=== PATIENT | male | born 1945 | race Caucasian/White ===

== ENCOUNTER → 2022-07-27 13:42 | Outpatient (BNVA) | payer MEDICARE, SELFPAY | PROVIDERS: PCP Internal Medicine; Visit Provider Physician Assistant | DX: R26.81 Unsteadiness on feet (principal) | CPT/HCPCS: 99202 ==

== ENCOUNTER 2023-01-19 07:51 | Outpatient (AMB) | payer MEDICARE, SELFPAY ==
--- NOTE | 2023-01-19 07:56 | A.OFFVIS_ITS ---
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-confirmed Intake Note: NPV for unsteadiness, also has a lot of back pain Film Casting Operator Required: No Allergies latex [Latex] Allergy (Mild, Verified 01/19/23 08:00) RASH atorvastatin [From LIPITOR] Allergy (Unknown, Verified 01/19/23 08:00) BODY ACHES Latex Gloves Allergy (Unknown, Uncoded 01/19/23 08:00) Rash Medication List - Last Reconciled 01/19/23 by Poly Renee MD albuterol sulfate 90 mcg/actuation 1 inh inhalation Q4-6H PRN ascorbate calcium (vitamin C) 1,000 mg PO DAILY aspirin (Adult Low Dose Aspirin) 81 mg PO DAILY berberine-herbal comb no.18 1,000 caps PO DAILY carvedilol 3.125 mg PO BID coenzyme Q10 (Ultra CoQ10) 300 mg PO DAILY coQ10 (ubiquinol) 100 mg PO DAILY cranberry 15,000 mg PO DAILY folic acid 0.8 mg PO DAILY garlic extract 1,000 mg PO DAILY lorazepam 0.5 mg PO BEDTIME PRN multivitamin 1 tab PO DAILY nitroglycerin 0.4 mg sublingual Q5M PRN omega-3 fatty acids 1,000 mg PO DAILY vitamin B complex 1 cap PO DAILY vitamin K2 45 mcg PO QDAY zinc acetate (Galzin) 50 mg PO DAILY HPI HPI Comments History of Present Illness Details 77y/o male with 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 After his surgery in 2014 he did good and walking was normal. In 2016 he started having back pain and went to see DR. DON and was referred to pain management for facet joint injections. The first injection in 2018 he did well for 1 year. The second injection was in 2019 and he did not have a good response. Since then his back pain has been worsening. About 1 year ago he started noticing having trouble standing and walking. He has tremors in his legs and had trouble walking . he was seen by Neuro spine ( Mykel Canas ) at [place]. CT of LS spine and C spine did not show any spinal stenosis but had multilevel deg changes. No recent falls.His thinks it is related to amlodipine as she watched a video on you tube.So he stopped amlodipine and he feels his tremors have improved but still has trouble walking. 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 disorder Cervical spondylosis Lumbar spondylosis Borderline hyperlipidemia Prostate cancer Prediabetes Chronic back pain CAD (coronary artery disease) HTN (hypertension) Cataract (lens) fragments in eye following cataract surgery, bilateral Surgical History Hx of appendectomy Hx of tonsillectomy History of cholecystectomy Stented coronary artery Social History Alcohol intake: never Patient Tobacco Use Status: Never used Tobacco Review of Systems Const Reports weakness ENT Reports neck pain Card Reports dyspnea Resp Reports dyspnea Musc Reports back pain and Reports neck pain Neuro Reports tremor(s) and Reports weakness Physical Exam Vital Signs: Last Vital Signs Pulse 78 01/19/23 08:14 BP 110/78 01/19/23 08:14 Pulse Ox 98 01/19/23 08:14 Oxygen Delivery Method Room Air 01/19/23 08:14 BMI result Body Mass Index 31.3 Const General: cooperative, healthy appearing, comfortable and no acute distress Nutritional Appearance: average body habitus Orientation/consciousness: patient oriented x3 Neuro Other: Gait- can walk without a cane or walker but slower and mildly off balance with wide base with walker, good stride and balance No tremors No cog wheel rigidity General: patient oriented x3, tone normal, moves all extremities and no focal motor deficits Cranial nerves: Yes Bilaterally intact EOM present, Yes Nystagmus not present, Yes Normal facial strength present, Yes Midline tongue present, Yes Symmetric palate elevation present and Yes Ability to bilaterally elevate shoulders present Cognition (Neuro): normal cognition Motor exam (neuro): 5/5 motor strength present throughout and Normal motor muscle tone present throughout Deep tendon reflexes (DTR's): Right triceps reflex intensity grade: 2+, Left triceps reflex intensity grade: 2+, Rt Biceps (C5, C6): 2+, Left biceps reflex intensity grade: 2+, Right brachioradialis reflex intensity grade: 2+, Left brachioradialis reflex intensity grade: 2+, Right patellar reflex intensity grade: 2+ and Left patellar reflex intensity grade: 2+ Coordination: [id number] test normal Assessment & Plan Assessment & Plan (1) Gait disorder: Comment: multifactorial, related to back pain, lumbar and cervical spondylosis Code(s): R26.9 - Unspecified abnormalities of gait and mobility (2) Cervical spondylosis: Code(s): M47.812 - Spondylosis without myelopathy or radiculopathy, cervical region (3) Lumbar spondylosis: Code(s): M47.816 - Spondylosis without myelopathy or radiculopathy, lumbar region Plan I will evaluate him with CT brain to r/o NPH which is unlikely Labs to r/o Vit b 12 deficiency Suggested PT for gait training . F/u with pain management Tremors resolved with stopping amlodipine as per his . Orders: Orders PT Evaluation and Treatment 01/19/23 R26.9 - Unspecified abnormalities of gait and mobility CT head/brain wo IV con 01/19/23 R26.9 - Unspecified abnormalities of gait and mobility Vitamin B12 and Folate 01/19/23 R26.9 - Unspecified abnormalities of gait and mobility Complete Blood Count Auto Diff 01/19/23 R26. - Unspecified abnormalities of gait and mobility Comprehensive Met. Panel 01/19/23 R26.9 - Unspecified abnormalities of gait and mobility Erythrocyte Sedimentation Rate 01/19/23 R26.9 - Unspecified abnormalities of gait and mobility Vitamin D 25-OH (D2 and D3) 01/19/23 R26.9 - Unspecified abnormalities of gait and mobility Lipid Panel with Reflex 01/19/23 R26.9 - Unspecified abnormalities of gait and mobility Coding Level of Care Code New Pt Level 4 (71368) Diagnoses Gait disorder R26.9 Cervical spondylosis M47.812 Lumbar spondylosis M47.816
[2023-01-19 08:14] VITALS: BP 110/78; PULSE 78; O2SAT 98; BMI 31.3
== END 2023-01-19 08:48 | disposition home or self-care (01) ==
PROVIDERS: Visit Provider Psychiatry & Neurology Neurology
DX: R26.9 Unspecified abnormalities of gait and mobility (principal); M47.812 Spondylosis without myelopathy or radiculopathy, cervical region; M47.816 Spondylosis without myelopathy or radiculopathy, lumbar region
CPT/HCPCS: 99204

== ENCOUNTER → 2023-01-19 07:51 | Outpatient (BNVA) | payer MEDICARE, SELFPAY | PROVIDERS: Visit Provider Psychiatry & Neurology Neurology ==

== ENCOUNTER 2023-02-02 07:31 | Outpatient (REF) | payer MEDICARE, SELFPAY ==
--- NOTE | ~2023-02-02 | CT_ITS ---
EXAMINATION: CT HEAD WITHOUT CONTRAST CLINICAL INFORMATION: Abnormalities of gait and mobility. COMPARISON: There are no prior studies available for comparison. TECHNIQUE: Multidetector CT imaging of the head was obtained without the use of intravenous contrast. Coronal and sagittal reformatted images were generated at the technologist workstation. This CT examination was performed using dose optimization techniques as appropriate, variously including the following: *Automated exposure control *Adjustment of mA and/or kV according to patient size (this includes techniques or standardized protocols for targeted exams where dose is matched to indication/reason for exam; i.e. extremities or head) *Use of iterative reconstruction technique DLP: 793 mGy-cm. FINDINGS: There is no evidence of acute intracranial hemorrhage or territorial infarction. No abnormal mass-effect or midline shift is seen. Major to white matter differentiation is well preserved. No extra-axial fluid collections are identified. The ventricles and sulci commensurately prominent consistent with diffuse volume loss. There are areas of low-attenuation in the periventricular and subcortical white matter consistent with chronic microvascular ischemic changes. There are bilateral basal ganglia lacunar infarcts. There are no acute osseous or soft tissue abnormalities. There have been bilateral lens extractions. There are atheromatous calcifications of the bilateral vertebral and cavernous internal carotid arteries. The mastoid air cells and visualized paranasal sinuses are well aerated. CT/CT head/brain wo IV con IMPRESSION: 1. There are no acute bleeds or territorial infarcts. No masses are demonstrated. 2. There are chronic microvascular ischemic changes and lacunar infarcts. There is diffuse volume loss.
== END 2023-02-02 07:32 | disposition home or self-care (01) ==
LOC: HO.CT 07:31
PROVIDERS: PCP Nurse Practitioner Adult Health; Visit Provider Psychiatry & Neurology Neurology
DX: R26.9 Unspecified abnormalities of gait and mobility (principal)
CPT/HCPCS: 70450

== ENCOUNTER 2023-11-30 09:42 | Outpatient (AMB) | payer MEDICARE, SELFPAY ==
--- NOTE | 2023-11-30 10:03 | A.OFFVIS_ITS ---
Vital Signs 11/30/23 10:04 Height 5 ft 6 in Weight 191 lb BMI 30.8 BP 128/76 Blood Pressure Location Rt brachial Position Sitting Respiration 16 Pulse 60 Pulse Source Pulse Oximeter Pulse Oximetry (%) 96 Oxygen Delivery Method Room Air Intake Visit Reasons: 6m f/u Unsteadiness Intake Note: Pt presents to te office for 6 month follow up for unsteadiness. Social And Human Services Assistant Required: No Allergies latex [Latex] Allergy (Mild, Verified 11/30/23 10:04) RASH atorvastatin [From LIPITOR] Allergy (Unknown, Verified 11/30/23 10:04) BODY ACHES Latex Gloves Allergy (Unknown, Uncoded 11/30/23 10:04) Rash Medication List - Last Reconciled 11/30/23 by Poly Renee MD albuterol sulfate 90 mcg/actuation 1 inh inhalation Q4-6H PRN ascorbate calcium (vitamin C) 1,000 mg PO DAILY aspirin (Adult Low Dose Aspirin) 81 mg PO DAILY berberine-herbal comb no.18 1,000 caps PO DAILY carvedilol 3.125 mg PO BID coenzyme Q10 (Ultra CoQ10) 300 mg PO DAILY coQ10 (ubiquinol) 100 mg PO DAILY cranberry 15,000 mg PO DAILY folic acid 0.8 mg PO DAILY garlic extract 1,000 mg PO DAILY lorazepam 0.5 mg PO BEDTIME PRN multivitamin 1 tab PO DAILY nitroglycerin 0.4 mg sublingual Q5M PRN omega-3 fatty acids 1,000 mg PO DAILY vitamin B complex 1 cap PO DAILY vitamin K2 45 mcg PO QDAY zinc acetate (Galzin) 50 mg PO DAILY HPI Comments Details: 78y/o male with DJD of lumbar and cervical spine , with surgery L2-5 decompression in 2014 comes for follow up of gait abnormality.CT head - no evidence of NPH , white matter changes and atrophy. After his surgery in 2014 he did good and walking was normal. In 2016 he started having back pain and went to see DR. DON and was referred to pain management for facet joint injections. The first injection in 2018 he did well for 1 year. The second injection was in 2019 and he did not have a good response. Since then his back pain has been worsening. About 1 year ago he started noticing having trouble standing and walking. He has tremors in his legs and had trouble walking . he was seen by Neuro spine ( Mykel Canas ) at [place]. CT of LS spine and C spine did not show any spinal stenosis but had multilevel deg changes. No recent falls.His thinks it is related to amlodipine as she watched a video on you tube.So he stopped amlodipine and he feels his tremors have improved but still has trouble walking. 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 disorder Cervical spondylosis Lumbar spondylosis Borderline hyperlipidemia Prostate cancer Prediabetes Chronic back pain CAD (coronary artery disease) HTN (hypertension) Cataract (lens) fragments in eye following cataract surgery, bilateral Surgical History Hx of appendectomy Hx of tonsillectomy History of cholecystectomy Stented coronary artery Social History Alcohol intake: never Patient Tobacco Use Status: Never used Tobacco Physical Exam Vital Signs: Last Vital Signs Pulse 60 11/30/23 10:04 Resp 16 11/30/23 10:04 BP 128/76 11/30/23 10:04 Pulse Ox 96 11/30/23 10:04 Oxygen Delivery Method Room Air 11/30/23 10:04 BMI result Body Mass Index 30.8 Const General: cooperative, healthy appearing, comfortable and no acute distress Nutritional Appearance: average body habitus Orientation/consciousness: patient oriented x3 Neuro Other: Gait- can walk without a cane or walker but slower and mildly off balance with wide base with walker, good stride and balance No tremors No cog wheel rigidity General: patient oriented x3, tone normal, moves all extremities and no focal motor deficits Cranial nerves: Yes Bilaterally intact EOM present, Yes Nystagmus not present, Yes Normal facial strength present, Yes Midline tongue present, Yes Symmetric palate elevation present and Yes Ability to bilaterally elevate shoulders present Cognition (Neuro): normal cognition Motor exam (neuro): 5/5 motor strength present throughout and Normal motor muscle tone present throughout Deep tendon reflexes (DTR's): Right triceps reflex intensity grade: 2+, Left triceps reflex intensity grade: 2+, Rt Biceps (C5, C6): 2+, Left biceps reflex i ntensity grade: 2+, Right brachioradialis reflex intensity grade: 2+, Left brachioradialis reflex intensity grade: 2+, Right patellar reflex intensity grade: 2+ and Left patellar reflex intensity grade: 2+ Coordination: [id number] test normal Assessment & Plan Assessment & Plan (1) Gait disorder: Comment: multifactorial, related to back pain, lumbar and cervical spondylosis Code(s): R26.9 - Unspecified abnormalities of gait and mobility Category: Medical (2) Cervical spondylosis: Code(s): M47.812 - Spondylosis without myelopathy or radiculopathy, cervical region Category: Medical (3) Lumbar spondylosis: Code(s): M47.816 - Spondylosis without myelopathy or radiculopathy, lumbar region Category: Medical Plan No evidence of NPH on CT Labs to r/o Vit b 12 deficiency Home PT for gait training F/u with pain management F/U as needed Orders: Orders Complete Blood Count Auto Diff Today R26.9 - Unspecified abnormalities of gait and mobility Comprehensive Met. Panel Today R26.9 - Unspecified abnormalities of gait and mobility Referrals [facility] Referral M47.812 - Spondylosis without myelopathy or radiculopathy, cervical region, M47.816 - Spondylosis without myelopathy or radiculopathy, lumbar region, R26.9 - Unspecified abnormalities of gait and mobility Coding Level of Care Code Est Pt Level 4 (25201) Diagnoses Gait disorder R26.9 Cervical spondylosis M47.812 Lumbar spondylosis M47.816
[2023-11-30 10:04] VITALS: BP 128/76; PULSE 60; RESP 16; O2SAT 96; BMI 30.8
== END 2023-11-30 10:44 | disposition home or self-care (01) ==
PROVIDERS: Absent Provider Psychiatry & Neurology Neurology; PCP Internal Medicine; Visit Provider Psychiatry & Neurology Neurology
DX: R26.9 Unspecified abnormalities of gait and mobility (principal); M47.812 Spondylosis without myelopathy or radiculopathy, cervical region; M47.816 Spondylosis without myelopathy or radiculopathy, lumbar region
CPT/HCPCS: 99214

== ENCOUNTER → 2023-11-30 09:42 | Outpatient (BNVA) | payer MEDICARE, SELFPAY | PROVIDERS: Absent Provider Psychiatry & Neurology Neurology; PCP Internal Medicine; Visit Provider Psychiatry & Neurology Neurology | DX: R26.9 Unspecified abnormalities of gait and mobility (principal); M47.812 Spondylosis without myelopathy or radiculopathy, cervical region; M47.816 Spondylosis without myelopathy or radiculopathy, lumbar region | CPT/HCPCS: 36415; 80053; 82306; 82607; 82746; 85025; 99212 ==

== ENCOUNTER 2023-11-30 10:45 | Outpatient (REF) | payer MEDICARE, SELFPAY ==
[2023-11-30 17:54] LABS: MANUAL DIFF FLAG NO
[2023-11-30 18:18] LABS: Basophils Percent Auto 0.7 % (0-2); Eosinophils Absolute Auto 0.4 X10*3/uL (0.0-0.4); Eosinophils Percent Auto 6.4 % (0-4); Hematocrit 44.7 % (42.0-52.0); Hemoglobin 15.3 g/dl (14.0-18.0); Imm Gran Abs Auto 0.01 X10*3/uL (0.00-0.03); Imm Gran Pct Auto 0.2 % (0.0-0.4); Lymphocytes Absolute Auto 1.3 X10*3/uL (1.2-4.9); Lymphocytes Percent Auto 21.5 % (20-40); Mean Corpuscular HGB Conc 34.2 g/dl (31.0-36.0); Mean Corpuscular Volume 93.5 fL (80.0-98.0); Mean Platelet Volume 10.8 fL (9.4-12.4); Monocytes Absolute Auto 0.6 X10*3/uL (0.1-1.2); Monocytes Percent Auto 9.9 % (2-11); Neutrophils Absolute Auto 3.7 x10*3/uL (2.0-8.3); Neutrophils Percent Auto 61.3 % (45-73); Platelet Count 248 X10*3/uL (160-400); Red Blood Count 4.78 X10*6/uL (4.60-5.80); Red Cell Distribution Width 13.3 % (11.0-16.0)
[2023-11-30 18:19] LABS: Alanine Aminotransferase 19 U/L (0-40); Alkaline Phosphatase 83 U/L (39-117); Anion Gap 11 (12-20); Aspartate Amino Transferase 18 U/L (5-37); Bilirubin Total 0.5 mg/dL (0.0-1.0); Blood Urea Nitrogen 15 mg/dL (9-16); Calcium 9.6 mg/dL (8.4-10.2); Carbon Dioxide 29 mmol/L (22-29); Chloride 106 mmol/L (96-108); Estimated Glomerular Filt Rate > 60; Glucose Random 90 mg/dL (60-115); Potassium 4.5 mmol/L (3.3-5.1); Sodium 141 mmol/L (135-145); Total Protein 6.8 g/dL (6.5-8.0)
[2023-11-30 18:55] LABS: Folate 15.2 ng/mL (> or = 4.0); Vitamin B12 316 pg/mL (200-900)
[2023-12-06 16:39] LABS: Vitamin D 25-OH, D2 <4 ng/mL; Vitamin D 25-OH, D3 34 ng/mL; Vitamin D 25-OH, Total 34 ng/mL (30-100)
== END 2023-11-30 10:46 | disposition home or self-care (01) ==
LOC: HO.HKASLDS 10:45
PROVIDERS: Visit Provider Psychiatry & Neurology Neurology
DX: R26.9 Unspecified abnormalities of gait and mobility (principal); Z13.89 Encounter for screening for other disorder
CPT/HCPCS: 36415; 80053; 82306; 82607; 82746; 85025

== ENCOUNTER 2025-03-04 07:49 | Outpatient (REF) | payer MEDICARE, SELFPAY ==
--- NOTE | ~2025-03-04 | XR_ITS ---
EXAMINATION: XR CHEST CLINICAL INFORMATION: R05.9 - Cough, unspecified COMPARISON: X-ray 03/06/2019 TECHNIQUE: 2 views of the chest were obtained. FINDINGS: Cardiomediastinal silhouette is within normal limits, stable. Stable mild elevation right hemidiaphragm. Mild peribronchial thickening in bilateral lower lungs. No focal consolidation. No effusion. No pneumothorax. Thoracolumbar spondylosis. XR/XR chest 2V IMPRESSION: Bronchial wall thickening can be seen with a small airway process such as asthma or atypical/viral infections. Electronically signed by: Margarito Osuna MD 03/04/2025 08:55 AM EST
== END 2025-03-04 07:50 | disposition home or self-care (01) ==
LOC: HO.HMGCX 07:49
PROVIDERS: PCP Internal Medicine; Visit Provider Nurse Practitioner Family
DX: R06.2 Wheezing (principal); R05.9 Cough, unspecified; Z79.82 Long term (current) use of aspirin; Z79.899 Other long term (current) drug therapy
CPT/HCPCS: 71046; 99212

== ENCOUNTER 2025-03-04 07:49 | Outpatient (AMB) | payer MEDICARE, SELFPAY ==
--- OUTSIDE RECORDS SUMMARY | 2025-03-04 07:51 | XMS_ITS | Encounter Summary ---
Author Organization [employer] Address [address] [facility] [address] [place] [address] Care Team Providers Care Rn Maternity Name Role Phone Unavailable Primary Care Provider Unavailabl e Encounter Details Date Type Department Care Team (Latest Contact Info) Description 07/24/2020 Abstract [facility] CONVERSIONS Dental, Provider, DDS Social History Tobacco Use Types Packs/Day Years Used Date Smoking Tobacco: Never Assessed Sex and Gender Information Value Date Recorded Sex Assigned at Male 02/01/2022 10:35 AM EDT Legal Sex Male 10:35 AM EDT Gender Identity Male 02/01/2022 10:35 AM EDT Sexual Orientation Straight 02/01/2022 10 :35 AM EDT documented as of this encounter Plan of Treatment Not on file documented as of this encounter Visit Diagnoses Not on filedocumented in this encounter
--- OUTSIDE RECORDS SUMMARY | 2025-03-04 07:51 | XMS_ITS | Encounter Summary ---
Author Organization [employer] Address [address] [facility] [address] [place] [address] Care Team Providers Care Talent Agent Name Role Phone Unavailable Primary Care Provider Unavailabl e Encounter Details Date Type Department Care Team (Latest Contact Info) Description 06/28/2018 Abstract [facility] CONVERSIONS Dental, Provider, DDS Social History [...]
--- OUTSIDE RECORDS SUMMARY | 2025-03-04 07:51 | XMS_ITS | Patient Health Record ---
Author Organization [facility] Address [address] [place] [address] Care Team Providers Care Corporate Banking Officer Name Role Phone Hernando EMERSON, Carol Primary Care Provider Unavailab Serjio Michaels Unavailable [phone] Allergies Allergen (clinical drug ingredient) Drug/Non Drug Allergy documented on EMR Reaction Allergy Type Onset Date Status atorvastatin Lipitor achey muscles,joints Drug Allergy Active Adhesive hives Allergy Active Latex Latex rash Allergy Active Reason For Referral No Information Medications Medication SIG (Take, Route, Frequency, Duration) Notes Start Date End Date Status Pantothenic Acid Act kareem Niacin Active amLODIPine Besylate 5 MG Orally Active Folic Acid Active Vitamin B12 Not-Taki ng Choline 40 mcg Activ e Vitamin B6 Not-Takin g LamISIL AT 1 % 1 application to affected area Externally Twice a day to affected areas on feet; Duration: 30 days 07/15/2017 Active Ciclopirox Olamine 0.77 % 1 application to affected area Externally Twice a day; Duration: 30 days Not-Taking Grape Seed Extract A ctive Advair HFA Not-Takin g Lutein Active Lorazepam PRN Active NitroQuick Active Molybdenum Active ProAir HFA Not-Takin g Metoprolol Tartrate 50 MG Orally Not-Taking Coenzyme Q-10 Active Carvedilol 3.125 MG 2 tablet with food Orally once a day Active vitamin D Not-Taking Chromium Active Alpha Lipoic Acid Ac tive Vitamin A Active Rosuvastatin Calcium Active Acetylcarnitine HCl Active Vitamin C Active Ascorbic Acid Active Vitamin B Complex - as directed Orally Active Baby Aspirin 2 tab Active Aspir-81 Not-Taking Adult Gummy multivitamins Acti ve Vitamin E Active [place] Active Clopidogrel Bisulfate Not-Taking Biotin Active Plavix Not-Taking Resveratrol Active Immunizations Vaccine Route Administration Date Status Comme nts Influenza Unknown 12/22/2018 Administered Pneumococcal Unknown 12/28/2010 Administered COVID-19 Dennis & Dennis/Latoya Unknown 05/15/2021 R efused Social History Tobacco Use: Social History Observation Description Date Details (start date - stop date) Never Smoker NA - NA Tobacco Use/Smoking Question Answer Notes Are you a: nonsmoker Additional Findings: Tobacco Non-User Current no n-smoker Alcohol Screen Question Answer Notes Did you have a drink containing alcohol in the p ast year? No Points 0 Interpretation Negative Tobacco use other than smoking: Question Answer Notes Are you an other tobacco user? No Problems Problem Type SNOMED Code ICD Code Onset Dates Problem Status W/U Status Risk Notes Problem Tinea unguium (472291304) Tinea unguium (B35.1) Active confirmed Problem Ingrowing nail (797338253) Ingrowing nail (L60.0) Active confirmed Recurrent Problem Plantar wart (14570562) Plantar wart (B07.0) Active confirmed Chronic Plan Of Treatment Pending Test Test Name Order Date [id number] NAIL, 6 OR MORE 01/28/2017 93168-[id number] NAIL, 6 OR MORE 05/13/2017 41605-ZIGVUAS NAIL, 6 OR MORE 07/15/2017 40759-FGCZJPV NAIL, 6 OR MORE 09/23/2017 40942-SVFPMMW NAIL, 6 OR MORE 12/30/2017 38581-IUIGWUG NAIL, 6 OR MORE 03/14/2018 34906-LBDLGLC NAIL, 6 OR MORE 05/26/2018 00482-PXFJZBX NAIL, 6 OR MORE 09/08/2018 87232-CLLTKLK NAIL, 6 OR MORE 12/15/2018 61389-HCQQFRI NAIL, 6 OR MORE 02/23/2019 68870-AKVDQMN NAIL, 6 OR MORE 05/04/2019 10429-WGSLDVJ NAIL, 6 OR MORE 08/24/2019 46903-KFLTGVK NAIL, 6 OR MORE 11/06/2019 57057-PSRSZPH NAIL, 6 OR MORE 02/01/2020 81468-QOGWPAH NAIL, 6 OR MORE 04/18/2020 01455-MJILPYT NAIL, 6 OR MORE 06/27/2020 89223-DAKIKQB NAIL, 6 OR MORE 10/07/2020 28698-LGUXFJB NAIL, 6 OR MORE 12/30/2020 26966-NJFEUAO NAIL, 6 OR MORE 03/12/2021 76384-YTTIVGZ NAIL, 6 OR MORE 05/15/2021 13620-FKHYEJD NAIL, 6 OR MORE 07/21/2021 20715-TUUECRQ NAIL, 6 OR MORE 09/29/2021 68508-Qjnx Destruction, -14 09/29/2021 76091-Ebca Destruction, -14 05/15/2021 06399-Lqka Destruction, 14 07/21/2021 38900-Wxui Destruction, 14 12/30/2020 90176-Bpvv Destruction, 14 03/12/2021 58594-Odxn Destruction, 14 06/27/2020 45208-Fdlc Destruction, 14 10/07/2020 29435-Ivij Destruction, 14 02/01/2020 37182-Gvws Destruction, 04-1704/18/2020 93274-Qyvx Destruction, 14 08/24/2019 05046-Pbfi Destruction, 04-1711/06/2019 87581-Ulwp Destruction, 14 02/23/2019 33289-Jgnz Destruction, 14 05/04/2019 69389-Izmg Destruction, 14 12/15/2018 23483-Wbvw Destruction, 14 05/26/2018 25430-Dbzd Destruction, 14 09/08/2018 31190-Nlnw Destruction, 14 03/14/2018 36924-Szst Destruction, -14 12/30/2017 24650-Brca Destruction, -14 09/23/2017 55149-Blyo Destruction, 14 07/15/2017 71957-Bsdk Destruction, 14 05/13/2017 13109-Oytc Destruction, -14 01/28/2017 53508-Soanskph Plate 09/08/2018 73725-Zyzldpvl Plate 05/26/2018 09154-Qmpatkre Plate 05/04/2019 45646-Awsgqrdp Plate 02/23/2019 67835-Sdooztiq Plate 08/24/2019 09854-Letisnvd Plate 11/06/2019 89124-Tectxgcu Plate 06/27/2020 87036-Utuovkhk Plate 04/18/2020 20805-Snbtcesk Plate 02/01/2020 22760-Qubiywva Plate 10/07/2020 70673-Yptskunf Plate 03/12/2021 82908-Xnjuetvm Plate 12/30/2020 56900-Jervzoxi Plate 05/15/2021 90457-Manxxcpm Plate 07/21/2021 09450-Zklvtsje Plate 09/29/2021 67632- Biopsy of skin lesion 01/28/2017 Insurance Providers Payer Name Payer Address Payer Phone Subscriber Number Group Number Insured Name Patient Relationship to Insured Coverage Start Date Coverage End Date Medicare National Govt [employer] [address] [place] [address] [id number] Bernabe Al Self - patient is the insured 9 [employer] [address] [place] [address] [id number] Bernabe Al Self - patient is the insured Medical (General) History Medical History History ICD Code Angina Anxiety Arthritis asthma Back,Hip,and Knee pain Cholesterol Heart disease High blood pressure Lung disease Sciatica Measles Mumps Chicken pox Vascular grafts, stents Prostate cancer Diverticulitis Surgical History Surgery Date(Month/Year) Stent 09/07/20 gall bladder hammertoe appendectomy 1960 back injection 10/2017 teeth extraction- [facility] 2018 cataract surgery left 10/22/19 Hospitalization History Reason Date(Month/Year) [facility]- Chest pain 01/11[facility]19[facility]01/14/19 injection for prostate cancer every 6 mo [facility] 04/13/2019 [facility]- stent 3 days 09/07/20 [facility], heart 09/14/20 PCP - CT of Abdomen -Dverticulitis
--- OUTSIDE RECORDS SUMMARY | 2025-03-04 07:51 | XMS_ITS | Clinical Summary ---
Author Organization [email or web address] Address [address] [place] [address] [address] [place] [address] Care Team Providers Care [employer] Name Role Phone Unavailable Primary Care Provider Unavailabl e Allergies Active Allergy Reactions Criticality Noted Date Comments Latex 09/28/2018 Statins 01/31/2023 Medications carvedilol (Coreg) 3.125 MG tablet See Instructions, TAKE 1 TABLET EVERY MORNINGAND TAKE 2 TABLETS EVERY EVENING, # 270 tablet, Refills 3, Maintenance, 04/06/22 9:01:00 EST, Instructions Replace Required Details, Route to Pharmacy Electronically, [facility], 167,... 3 Active aspirin 81 MG EC tablet Take 1 tablet by mouth at bed time. 2 Active nitroglycerin (Nitrostat) 0.[address] 1 tablet under the tongue. 2 Active LORazepam (Ativan) 0.5 MG tablet Take 0.5 mg by mouth. 3 Active coenzyme Q-10 300 mg capsule capsule Active Pediatric Multiple Vitamins (Chewable [facility]) chewable tablet Acti ve Sodium Fluoride (PreviDent 5000 Booster Plus) 1.1 % paste For use at nighttime before bed. Use a peasize on toothbrush brush teeth, Spit out do not rinse. 112 g 3 3 Active Social History Tobacco Use Types Packs/Day Years Used Date Smoking Tobacco: Never Smokeless Tobacco: Never Tobacco Cessation:Counseling Given: Not Answered Alcohol Use Standard Drinks/Week Comments Never 0 (1 standard drink = 0.6 oz pur e alcohol) Sex and Gender Information Value Date Recorded Sex Assigned at Male 02/01/2022 10:35 AM EDT Legal Sex Male 10:35 AM EDT Gender Identity Male 02/01/2022 10:35 AM EDT Sexual Orientation Straight 02/01/2022 10 :35 AM EDT Plan of Treatment Health Maintenance Due Date Last Done Comments Anal Pap 1943 Depression Screening 1943 Lipid Panel 1943 SDOH Screening 1943 Alcohol/Substance Use Screening 1955 Hepatitis A Vaccines (1 of 2 - Risk 2-dose series) 07/10/1962 Zoster Vaccines (1 of 2) 07/10/1993 Hepatitis B Vaccines (1 of 3 - Risk 3-dose series) 2003 RSV Patients and Patients Aged 60 years or older (1 - 1-dose 75+ series) 07/10/2018 Pneumococcal Vaccine: 50+ Years (2 of 2 - PCV) 01/09/2019 01/09/2018, 12/28/2010, 01/26/2005 Dental Prophylaxis 01/24/2021 07/24/2020, 0 01/01/2019, 06/28/2018 DTaP/Tdap/Td Vaccines (3 - Td or Tdap) 07/03/2022 07/03/2012, 04/04/2010 Dental Oral Exam 08/03/2023 01/31/2023, , 06/07/2018 Tobacco Screening 02/01/2024 01/31/2023 Dental X-Ray: Bitewings 02/02/2024 02/01/20 23, 07/24/2020, 05/09/2018 COVID-19 Vaccine ( season) 2024 Influenza Vaccine (#1) 2024 9, 01/04/2018, 01/04/2018, Additional history exists Dental X-Ray: Full Mouth 02/01/2026 01/31/2023, 08/2018 HIB Vaccines Aged Out No longer eligi ble based on patient's age to complete this topic HPV Vaccines Aged Out No longer eligi ble based on patient's age to complete this topic IPV Vaccines Aged Out No longer eligi ble based on patient's age to complete this topic Meningococcal B Vaccine Aged Out No l onger eligible based on patient's age to complete this topic Meningococcal Vaccine Aged Out No stevo miguelina eligible based on patient's age to complete this topic RSV under 20 months Aged Out No longe r eligible based on patient's age to complete this topic Rotavirus Vaccines Aged Out No longer eligible based on patient's age to complete this topic Procedures Procedure Name Priority Date/Time Associated Diagnosis Comments INTRAORAL - COMPLETE SERIES OF RADIOGRAPHIC IMAGES Routine 01/31/2023 11:00 AM EDT COMPREHENSIVE ORAL EVALUATION - NEW OR ESTABLISHED PATIENT Routine 01/31/2023 11:00 AM EDT PROPHYLAXIS - ADULT Routine 07/24/2020 1 2:00 AM EDT from Last 3 Months or Most Recently Relevant to Health Maintenance
[2025-03-04 07:52] VITALS: BP 120/64; PULSE 56; TEMP 36.4; O2SAT 96; BMI 31.6
--- NOTE | 2025-03-04 07:52 | MHC.OFFWIV ---
Intake Vital Signs 03/04/25 07:52 Height 5 ft 5 in Weight 190 lb BMI 31.6 BP 120/64 Blood Pressure Location Rt brachial Position Sitting Pulse 56 Pulse Source Pulse Oximeter Temp 97.5 F Temp Source Oral Pulse Oximetry (%) 96 Oxygen Delivery Method Room Air Intake Visit Reasons: EP cough for 7 days wheezing congested Intake Note: Patient presents c/o cough, SOB/wheezing, chest congestion x1 week. OTC medications have not provided much relief. Patient Tobacco Use Status: Never used Tobacco Allergies latex (Latex) Allergy (Mild, Verified 03/04/25 07:57) RASH atorvastatin (From LIPITOR) Allergy (Unknown, Verified 03/04/25 07:57) BODY ACHES Medication List - Last Reconciled 03/04/25 by Ruthie Gonsalez NP albuterol sulfate 90 mcg/actuation 1 inh inhalation Q4-6H PRN ascorbate calcium (vitamin C) 1,000 mg PO DAILY aspirin (Adult Low Dose Aspirin) 81 mg PO BID berberine-herbal comb no.18 1,000 caps PO DAILY carvedilol 6.25 mg PO BID coQ10 (ubiquinol) 100 mg PO DAILY cranberry 15,000 mg PO DAILY escitalopram oxalate 5 mg PO DAILY folic acid 0.8 mg PO DAILY garlic extract 1,000 mg PO DAILY lorazepam 0.5 mg PO BEDTIME PRN multivitamin 1 tab PO DAILY nitroglycerin 0.4 mg sublingual Q5M PRN omega-3 fatty acids 1,000 mg PO DAILY vitamin B complex 1 cap PO DAILY vitamin K2 45 mcg PO QDAY zinc acetate (Galzin) 50 mg PO DAILY HPI HPI Comments History of Present Illness Details 79-year-old male presents with 7 days of upper respiratory symptoms. Reports persistent cough, wheezing, chest tightness, shortness of breath, and fatigue. States OTC medications and various home remedies have provided no relief. Denies fever, chills, nausea, vomiting, or poor appetite. Denies known recent sick contacts. 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 Cervical spondylosis Lumbar spondylosis Borderline hyperlipidemia Prostate cancer Prediabetes Chronic back pain CAD (coronary artery disease) HTN (hypertension) Cataract (lens) fragments in eye following cataract surgery, bilateral Surgical History Hx of appendectomy Hx of tonsillectomy History of cholecystectomy Stented coronary artery Social History Alcohol intake: never Patient Tobacco Use Status: Never used Tobacco Review of Systems Const All systems reviewed & are unremarkable except as noted in HPI and below Physical Exam Vital Signs: Last Vital Signs Temp 97.5 F 03/04/25 07:52 Pulse 56 03/04/25 07:52 BP 120/64 03/04/25 07:52 Pulse Ox 96 03/04/25 07:52 Oxygen Delivery Method Room Air 03/04/25 07:52 BMI result Body Mass Index 31.6 Const General: no acute distress Nutritional Appearance: obese Orientation/consciousness: patient oriented x3 HEENT Head: Yes normocephalic Ears: external ears normal and TM abnormal with fluid behind the TM bilateral General nose exam: Nasal discharge present Face and sinus: Yes sinuses nontender Mouth: moist mucous membranes Throat: Yes uvula midline Resp Effort & Inspection: normal respiratory effort Auscultation: no crackles, no rales, no rhonchi and wheezes expiratory wheezes and lower bilaterally Cardio Heart sounds: S1 normal heart sound present and S2 normal heart sound present Neuro General: patient oriented x3 Assessment & Plan Assessment & Plan (1) Cough: Code(s): R05.9 - Cough, unspecified Plan: Acute upper respiratory infection, likely viral etiology. Differential includes pneumonia (though denies fever) vs Bronchitis. Ordered Chest Xray. Will Start her on Z-pack, Low dose Prednisone and Benzonatate. Continue supportive care: hydration, rest, OTC symptomatic relief. Orders: Orders XR chest 2V Today R05.9 - Cough, unspecified Medications: New prednisone 20 mg PO DAILY 5 tabs 0RF R05.9 - Cough, unspecified azithromycin 500 mg PO DAILY 3 tabs 0RF 3 days R05.9 - Cough, unspecified benzonatate 200 mg (2 x 100 mg) PO BID 60 caps 0RF R05.9 - Cough, unspecified Coding Level of Care Code Est Pt Level 4 (16564) Diagnoses Cough R05.9 Time Spent (min) 20
== END 2025-03-04 08:37 | disposition home or self-care (01) ==
PROVIDERS: PCP Internal Medicine; Visit Provider Nurse Practitioner Family
DX: R05.9 Cough, unspecified (principal)

== ENCOUNTER → 2025-03-04 08:38 | Outpatient (BNV) | payer MEDICARE, SELFPAY | PROVIDERS: PCP Internal Medicine; Visit Provider Radiology Diagnostic Ultrasound | DX: J98.09 Other diseases of bronchus, not elsewhere classified (principal) | CPT/HCPCS: 71046 ==